=== PATIENT | male | born 1975 ===

== ENCOUNTER 2017-01-02 15:04 | Emergency (ER) | payer MEDICAID, OTHER ==
[2017-01-02 15:04] VITALS: BMI 25.8
[2017-01-02 15:13] VITALS: TEMP 97.7
[2017-01-02] MEDS ORDERED: Sodium Chloride 0.9% 500 ML IV STA (15:26)
--- NOTE | 2017-01-02 15:28 | ED PDOC ---
HPI: SOB/CHF/COPD Time Seen by Provider: 01/02/17 15:17 Chief Complaint (Nursing): Shortness Of Breath Chief Complaint (Provider): Shortness of Breath History Per: Patient History/Exam Limitations: no limitations Onset/Duration Of Symptoms: Days (x3), Worse Since (onset) Current Symptoms Are (Timing): Still Present Associated Symptoms: Chest Pain (mild, cough associated), Productive Cough ( yellow sputum), Other (rhinorrhea; no nausea, vomiting, abdominal pain, weakness ). denies: Fever, Chills Additional Complaint(s): Frandy Magdaleno is a 41 year old male, with a past medical history inclusive of CHF, HTN and previous heroin/cocaine abuse, who presents to the ED on 01/02/17 for the evaluation of moderate shortness of breath that he has experienced x3 days, reportedly worse since onset. Associated productive cough with yellow sputum also reported in addition to some mild cough-associated chest pain and rhinorrhea. Denies fever, chills, feelings of weakness, numbness/tingling, nausea, vomiting, diarrhea, abdominal pain or extremity pain/swelling. Patient states that he is currently staying within one of the local shelters and, though he has tried to elevate his legs as much as possible, has been noncompliant with is CHF medications x1 month (Coreg 3.75mg, Lasix 30mg) as they had been "thrown away" while he had been admitted to [facility] 1 month ago for a period of 5 days. PMD: none Past Medical History Reviewed: Historical Data, Nursing Documentation, Vital Signs Vital Signs: Last Vital Signs Temp 97.7 F 01/02/17 15:11 Pulse 129 H 01/02/17 15:11 Resp 22 01/02/17 16:11 BP 147/92 H 01/02/17 15:11 Pulse Ox 95 01/02/17 16:15 - Medical History PMH: CHF, Depression, HTN Denies: Asthma, Diabetes, Emphysema, Hepatitis, HIV, Chronic Kidney Disease, Seizures, Sexually Transmitted Disease - Family History Family History: States: Unknown Family Hx - Social History Current smoker - smoking cessation education provided: No Alcohol: None Drugs: Cocaine, Opiates (heroin) - Immunization History Hx Tetanus Toxoid Vaccination: Yes Hx Influenza Vaccination: Yes Hx Pneumococcal Vaccination: Yes - Home Medications Home Medications: Ambulatory Orders Medication Instructions Recorded Aspirin [Ecotrin] 81 mg PO DAILY 09/02/16 Carvedilol [Coreg] 3.125 mg PO DAILY 09/02/16 Furosemide [Lasix] 20 mg PO BID 09/02/16 RX: Carvedilol [Coreg] 3.125 mg PO DAILY #30 tab 12/10/16 RX: Citalopram [celEXA] 40 mg PO DAILY #30 tab 12/10/16 RX: Furosemide [Lasix] 20 mg PO BID #60 tab 12/10/16 RX: Gabapentin [Neurontin] 300 mg PO BID #60 cap 12/10/16 RX: traZODone [Desyrel] 50 mg PO HS PRN #30 tab 12/10/16 - Allergies Allergies/Adverse Reactions: Allergies Allergy/AdvReac Type Severity Reaction Status Date / Time shellfish derived Allergy Severe ANAPHYLAXIS Verified 01/02/17 15:10 Review of Systems ROS Statement: Except As Marked, All Systems Reviewed And Found Negative Constitutional: Negative for: Fever, Chills, Weakness ENT: Positive for: Nose Discharge Cardiovascular: Negative for: Edema Respiratory: Positive for: Cough (w/mild, cough-associated chest pain), Shortness of Breath, Sputum (yellow) Gastrointestinal: Negative for: Nausea, Vomiting, Abdominal Pain, Diarrhea Musculoskeletal: Negative for: Leg Pain Neurological: Negative for: Weakness, Numbness Physical Exam - Reviewed Nursing Documentation Reviewed: Yes Vital Signs Reviewed: Yes - Physical Exam Appears: Positive for: Non-toxic, No Acute Distress Head Exam: Positive for: ATRAUMATIC, NORMOCEPHALIC Skin: Positive for: Normal Color, Warm, Dry Eye Exam: Positive for: Normal appearance, PERRL ENT: Positive for: Nasal Congestion. Negative for: Pharyngeal Erythema, Tonsillar Exudate, Tonsillar Swelling Neck: Positive for: Normal, Painless ROM, Supple Cardiovascular/Chest: Positive for: Tachycardia (regular rhythm). Negative for : Edema (no notable LE edema), Murmur Respiratory: Positive for: Decreased Breath Sounds (diminished b/l) Gastrointestinal/Abdominal: Positive for: Normal Exam, Soft. Negative for: Tenderness Back: Positive for: Normal Inspection Extremity: Positive for: Normal ROM. Negative for: Swelling Neurologic/Psych: Positive for: Alert, Oriented - Laboratory Results Result Diagrams: 01/02/17 16:00 - ECG ECG Rhythm: Positive for: Sinus Tachycardia, Right Bundle Branch Block, Nonspecific Changes (nonspecific ST changes) O2 Sat by Pulse Oximetry: 95 (RA) Pulse Ox Interpretation: Normal - Radiology X-Ray: Read By Radiologist X-Ray Interpretation: No Acute Disease - Progress ED Course And Treament: 165: Dr. Ruffin to take over care and fu on labs. Medical Decision Making Medical Decision Makin:17 Initial Impression: cough, shortness of breath in setting of known CHF Initial Plan: * EKG * CXR * ABG Shock Panel * Labs * BNP * Magnesium * Phosphorus * Troponin I * PTT * PT * Urine Drug Screen * Blood Culture * Urine Culture * Vital Signs Q15min * IV NS 500ml at 100mls/hr * Solu-Medrol 125mg IVP * Toradol 15mg IVP * Tessalon Perles 100mg PO * Duonebs 3ml INH * Duonebs 3ml INH * Nebulizer Treatment * Reevaluation EKG shows sinus tachycardia with a RBBB and nonspecific ST changes, as compared to previous EKG from 08/28/16 which had shown LVH. Scribe Attestation: Documented by Susie Chung, acting as a scribe for Joe Price MD. Provider Scribe Attestation: All medical record entries made by the Scribe were at my direction and personally dictated by me. I have reviewed the chart and agree that the record accurately reflects my personal performance of the history, physical exam, medical decision making, and the department course for this patient. I have also personally directed, reviewed, and agree with the discharge instructions and disposition. Disposition - Clinical Impression Clinical Impression: Dyspnea - Patient ED Disposition Is Patient to be Admitted: Transfer of Care - Disposition Disposition: Transfer of Care Disposition Time: 16:53 Condition: STABLE Patient Signed Over To: Nikki Ruffin
[2017-01-02] MEDS ORDERED: Albuterol-Ipratrop 3 mg / 0.5 (3 ml) UD ONE (15:31)
[2017-01-02] MEDS ORDERED: Albuterol-Ipratrop 3 mg / 0.5 (3 ml) UD INH STA (15:31)
[2017-01-02] MEDS ORDERED: Albuterol-Ipratrop 3 mg / 0.5 (3 ml) UD IH STA (15:31)
--- NOTE | 2017-01-02 16:11 | RAD ---
HISTORY: Sepsis patient. Upright portable study 15:40. COMPARISON: 08/18/2016. FINDINGS: LUNGS: No active pulmonary disease. PLEURA: No significant pleural effusion identified, no pneumothorax apparent. CARDIOVASCULAR: Normal. OSSEOUS STRUCTURES: No significant abnormalities. VISUALIZED UPPER ABDOMEN: Normal. OTHER FINDINGS: None. IMPRESSION: No active disease. No significant interval change compared to the prior examination(s).
[2017-01-02 16:18] LABS: ABG ALLEN TEST YES; ARTERIAL BLOOD GAS PH 7.43 (7.35-7.45); ARTERIAL BLOOD GAS PO2 70 mm/Hg (80-100)
[2017-01-02 16:29] LABS: BASO % 0.5 % (0.0-2.0); EOS % 0.1 % (0.0-4.0); HEMATOCRIT 38.6 % (35.0-51.0); LYMPH # 1.3 K/uL (1.0-4.3); MEAN CELL VOLUME 93.6 fl (80.0-94.0); MEAN CORPUSCULAR HEMOGLOBIN 31.3 pg (27.0-31.0); MEAN CORPUSCULAR HGB CONC 33.4 g/dL (33.0-37.0); MEAN PLATELET VOLUME 8.2 fl (7.2-11.7); MONO % 20.4 % (0.0-10.0); NEUT # 6.6 K/uL (1.8-7.0); NRBC % 0.1 % (0.0-0.0); PLATELET COUNT 206 K/uL (130-400); RED CELL DISTRIBUTION WIDTH 14.9 % (11.5-14.5)
[2017-01-02 16:45] LABS: ALB/GLOB RATIO 1.2 (1.0-2.1); ALCOHOL SERUM < 10 mg/dl (0-10); ALKALINE PHOSPHATASE 73 U/L (38-126); ALT/SGPT 27 U/L (21-72); AST/SGOT 34 U/L (17-59); BILIRUBIN,TOTAL 0.4 mg/dl (0.2-1.3); BLOOD UREA NITROGEN 15 mg/dl (9-20); CALCIUM 9.1 mg/dL (8.4-10.2); CARBON DIOXIDE 23 mmol/L (22-30); CHLORIDE 96 mmol/L (98-107); GFR AFRICAN-AMERICAN > 60; GLUCOSE,RANDOM 105 mg/dL (75-110); MAGNESIUM 1.8 MG/DL (1.6-2.3); PHOSPHOROUS 3.5 mg/dl (2.5-4.5); POTASSIUM 4.3 MMOL/L (3.6-5.0); SODIUM 130 mmol/l (132-148); TOTAL PROTEIN 7.5 G/DL (6.3-8.2)
[2017-01-02 17:06] LABS: PARTIAL THROMBOPLASTIN TIME 28.2 SECONDS (23.3-32.5)
[2017-01-02 17:47] VITALS: BP 114/69; PULSE 107; RESP 18; O2SAT 96
[2017-01-02 18:10] LABS: RBC URINE 2 /hpf (0-3); URINE BACTERIA FEW (<OCC); URINE BILIRUBIN NEGATIVE (NEGATIVE); URINE BLOOD NEGATIVE (NEGATIVE); URINE COLOR YELLOW (YELLOW); URINE GLUCOSE (UA) NEG (Normal); URINE KETONE NEGATIVE (NEGATIVE); URINE LEUKOCYTE ESTERASE NEG Leu/uL (Negative); URINE PROTEIN 30 mg/dL (NEGATIVE); URINE UROBILINOGEN 0.2-1.0 mg/dL (0.2-1.0); WBC URINE 1 /hpf (0-5)
[2017-01-02] MEDS ORDERED: Iodixanol 320 MG/ML 100 ML BOTTLE IV ONE (18:19)
[2017-01-02] MEDS ORDERED: Sodium Chloride 0.9% 50 ML IV ONE (18:19)
--- NOTE | 2017-01-02 19:07 | CT ---
CT chest with IV contrast Indication: Shortness of breath Technique: Contiguous axial images were obtained through the chest with intravenous contrast enhancement. Sagittal and coronal reconstructions were generated and reviewed. This CT exam was performed using 1 or more of the falling dose reduction techniques: Automated exposure control, adjustment of the MAA and/or kV according to patient size, and/or use of iterative reconstruction technique. IV Contrast: 95 mL Visipaque 320 Radiation dose (DLP): 395.58 MGy-cm. Comparison: Chest x-ray performed earlier the same day. CT chest without IV contrast performed 06/16/16 Findings: Visualized portions of the inferior thyroid gland appear unremarkable. The mediastinal and hilar vascular structures appear within normal limits. The heart appears within normal limits of size. No large central or segmental pulmonary embolus evident. No focal consolidation. No pleural effusion. No pneumothorax. No suspicious pulmonary nodules measuring greater than 5 mm. Limited visualization of the upper abdomen appears grossly unremarkable. Mild degenerative changes. Bilateral gynecomastia. Impression: Large central or segmental pulmonary embolus evident.
[2017-01-02 19:12] LABS: EOSINOPHIL 1 % (0-7); NEUTROPHIL 62 % (42-75); REACTIVE LYMPHOCYTES 1 % (0-0); TOTAL CELLS COUNTED 100
--- NOTE | 2017-01-02 19:23 | ED PDOC ---
- Laboratory Results Result Diagrams: 01/02/17 16:00 01/02/17 16:00 - ECG O2 Sat by Pulse Oximetry: 96 - Progress ED Course And Treament: 530p Rec'd endorsement from Dr Price. Pt with shortness of breath and tachycardia. Pending CTA chest r/o PD Accession No. : [id number] Patient Name / ID : STEW SANDERS / [id number] Exam Date : 01/02/2017 18:30:26 ( Approved ) Study Comment : Sex / Age : M / 41Y Creator : Kerrie Santoyo MD Dictator : Kerrie Santoyo MD Job Trainer : Art Tracer : Kerrie Santoyo MD Approver2 : Report Date : 01/02/2017 19:06:06 My Comment : CT chest with IV contrast Indication: Shortness of breath Technique: Contiguous axial images were obtained through the chest with intravenous contrast enhancement. Sagittal and coronal reconstructions were generated and reviewed. This CT exam was performed using 1 or more of the falling dose reduction techniques: Automated exposure control, adjustment of the MAA and/or kV according to patient size, and/or use of iterative reconstruction technique. IV Contrast: 95 mL Visipaque 320 Radiation dose (DLP): 395.58 MGy-cm. Comparison: Chest x-ray performed earlier the same day. CT chest without IV contrast performed 06/16/16 Findings: Visualized portions of the inferior thyroid gland appear unremarkable. The mediastinal and hilar vascular structures appear within normal limits. The heart appears within normal limits of size. No large central or segmental pulmonary embolus evident. No focal consolidation. No pleural effusion. No pneumothorax. No suspicious pulmonary nodules measuring greater than 5 mm. Limited visualization of the upper abdomen appears grossly unremarkable. Mild degenerative changes. Bilateral gynecomastia. 730p On reeval pt comfortable, lungs clear, no longer tachycardic. Reports cough productive of yellow sputum for 2 weeks associated with this shortness of breath. Other lab unremarkable. Pt discharged with acute bronchitis. Also will refill htn meds. Disposition - Clinical Impression Clinical Impression: Bronchitis - POA Present On Arrival: None - Disposition Referrals: LTAC, [facility] within [facility] [Outside] - 01/03/17 Disposition: Routine/Home Disposition Time: 17:00 Condition: STABLE Prescriptions: Albuterol HFA [Ventolin HFA 90 mcg/actuation (8 g)] 2 puff IH Q4H PRN #1 inh PRN Reason: ASTHMA Azithromycin [Zithromax] 250 mg PO DAILY #6 dose Carvedilol [Coreg] 3.125 mg PO DAILY #14 tab Furosemide [Lasix] 20 mg PO BID #30 tab Instructions: Acute Bronchitis (ED), Hypertension (ED)
--- NOTE | 2017-01-03 08:22 | CARD ---
APPROVED REPORT EKG Measurement Heart [id number] [id number] <Conclusion> Sinus tachycardia Possible Left atrial enlargement Left axis deviation Right bundle branch block T wave abnormality, consider lateral ischemia Abnormal ECG
== END 2017-01-02 19:26 | disposition home or self-care (01) ==
LOC: H.ER 15:04
DX: R06.00 Dyspnea, unspecified (principal); I11.0 Hypertensive heart disease with heart failure; I50.9 Heart failure, unspecified; F17.210 Nicotine dependence, cigarettes, uncomplicated

== ENCOUNTER 2018-10-02 17:27 | Emergency (ER) | payer MEDICAID, OTHER ==
[2018-10-02 17:27] VITALS: BMI 25.8
[2018-10-02 17:35] VITALS: TEMP 98.8
[2018-10-02 18:20] LABS: BASO # 0.1 K/uL (0.0-0.2); BASO % 1.2 % (0.0-2.0); EOS # 0.4 K/uL (0.0-0.7); EOS % 5.9 % (0.0-4.0); HEMOGLOBIN 13.2 g/dL (12.0-18.0); INR 0.9; LYMPH # 1.6 K/uL (1.0-4.3); LYMPH % 23.7 % (20.0-40.0); MEAN CELL VOLUME 93.9 fl (80.0-94.0); MEAN CORPUSCULAR HEMOGLOBIN 31.3 pg (27.0-31.0); MEAN CORPUSCULAR HGB CONC 33.3 g/dL (33.0-37.0); MEAN PLATELET VOLUME 7.9 fl (7.2-11.7); MONO % 15.5 % (0.0-10.0); NEUT # 3.6 K/uL (1.8-7.0); NEUT % 53.7 % (50.0-75.0); PROTHROMBIN TIME 10.6 Seconds (9.8-13.1); RBC 4.21 Mil/uL (4.40-5.90); RED CELL DISTRIBUTION WIDTH 14.5 % (11.5-14.5); WHITE BLOOD COUNT 6.8 K/uL (4.8-10.8)
[2018-10-02 18:22] LABS: PARTIAL THROMBOPLASTIN TIME 36.3 Seconds (25.6-37.1)
[2018-10-02 18:24] LABS: ALB/GLOB RATIO 1.4 (1.0-2.1); ALBUMIN 4.2 g/dL (3.5-5.0); ALT/SGPT 39 U/L (21-72); AST/SGOT 35 U/L (17-59); BLOOD UREA NITROGEN 19 mg/dl (9-20); GFR NON-AFRICAN AMERICAN > 60
--- NOTE | 2018-10-02 18:26 | RAD ---
Date of service: 10/02/2018 HISTORY: SOB hx CHF AICD COMPARISON: Chest radiograph dated 01/02/2017. TECHNIQUE: Chest PA and lateral FINDINGS: LUNGS: No active pulmonary disease. PLEURA: No significant pleural effusion identified. No pneumothorax apparent. CARDIOVASCULAR: Left subclavian access AICD/pacemaker now present with single lead terminating in the right ventricle. No aortic atherosclerotic calcifications. Cardiomediastinal silhouette stably enlarged. OSSEOUS STRUCTURES: Unchanged. VISUALIZED UPPER ABDOMEN: Normal. OTHER FINDINGS: None. IMPRESSION: No active disease.
[2018-10-02 18:36] LABS: B-TYPE NATRIURETIC PEPTIDE 654 pg/ml (0-450)
--- NOTE | 2018-10-02 18:42 | ED PDOC ---
HPI: SOB/CHF/COPD Time Seen by Provider: 10/02/18 17:42 Chief Complaint (Nursing): Shortness Of Breath Chief Complaint (Provider): lower extremity swelling History Per: Patient History/Exam Limitations: no limitations Onset/Duration Of Symptoms: Days (4), Gradual Initiating Event: Out Of Medications Exacerbating Factor(s): Exertion Current Respiratory Medications: See Home Med List Severity: Moderate Associated Symptoms: Ankle/Leg Swelling. denies: Fever, Chest Pain, Bloody Cough, Productive Cough, Heart Racing, Dizziness Additional Complaint(s): 42yo male hx dilated cardiomyopathy s/p AICD this past fall, presents with bilateral lower extremity edema and mild exertional dyspnea ongoing for about 4 days since he ran out of medications. Denies chest pain, orthopnea, syncope, fever, redness of legs, trauma or change in urination. 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 Past Medical History Reviewed: Historical Data, Nursing Documentation, Vital Signs Vital Signs: Last Vital Signs Temp 98.8 F 10/02/18 17:32 Pulse 88 10/02/18 17:32 Resp 20 10/02/18 17:59 BP 139/83 10/02/18 17:32 Pulse Ox 100 10/02/18 17:32 - Medical History PMH: CHF, Depression, HTN, Pneumonia Denies: Asthma, Diabetes, Emphysema, Hepatitis, HIV, Chronic Kidney Disease, Seizures, Sexually Transmitted Disease - Surgical History Surgical History: Pacemaker (defibrillator) Other surgeries: knee - Family History Family History: States: Unknown Family Hx - Social History Current smoker - smoking cessation education provided: No - Immunization History Hx Tetanus Toxoid Vaccination: No Hx Influenza Vaccination: Yes Hx Pneumococcal Vaccination: Yes - Home Medications Home Medications: Ambulatory Orders Medication Instructions Recorded Aspirin [Ecotrin] 81 mg PO DAILY #30 tabec 08/27/18 Carvedilol [Coreg] 3.125 mg PO BID #60 tab 08/27/18 Enalapril Maleate [Vasotec] 2.5 mg PO DAILY #30 tab 08/27/18 Furosemide [Lasix] 20 mg PO DAILY #30 tab 08/27/18 traZODone [Desyrel] 50 mg PO HS #30 tab 08/27/18 Aspirin [Ecotrin] 81 mg PO DAILY #15 tabec 10/02/18 Carvedilol [Coreg] 12.5 mg PO BID #30 tab 10/02/18 Enalapril Maleate [Vasotec] 2.5 mg PO DAILY #15 tab 10/02/18 Furosemide [Lasix] 20 mg PO DAILY #30 tab 10/02/18 - Allergies Allergies/Adverse Reactions: Allergies Allergy/AdvReac Type Severity Reaction Status Date / Time shellfish derived Allergy Severe ANAPHYLAXIS Verified 08/23/18 14:02 Review of Systems Constitutional: Negative for: Fever ENT: Negative for: Throat Pain Cardiovascular: Positive for: Edema. Negative for: Chest Pain, Orthopnea, Light Headedness Respiratory: Positive for: Shortness of Breath Gastrointestinal: Negative for: Nausea, Abdominal Pain Genitourinary Male: Negative for: Dysuria Musculoskeletal: Positive for: Leg Pain. Negative for: Neck Pain, Back Pain Skin: Negative for: Rash, Lesions, Jaundice Neurological: Negative for: Weakness, Numbness Physical Exam - Reviewed Nursing Documentation Reviewed: Yes Vital Signs Reviewed: Yes - Physical Exam Appears: Positive for: Well, Non-toxic, No Acute Distress Head Exam: Positive for: ATRAUMATIC, NORMAL INSPECTION, NORMOCEPHALIC Skin: Positive for: Normal Color, Warm, DRY Eye Exam: Positive for: EOMI, Normal appearance, PERRL ENT: Positive for: Normal ENT Inspection Neck: Positive for: Normal, Painless ROM Cardiovascular/Chest: Positive for: Regular Rate, Rhythm Respiratory: Positive for: Normal Breath Sounds. Negative for: Decreased Breath Sounds, Respiratory Distress Gastrointestinal/Abdominal: Positive for: Soft. Negative for: Tenderness Back: Positive for: Normal Inspection Extremity: Positive for: Normal ROM, Swelling (b/l 2+ lower ext pitting edema). Negative for: Deformity Neurologic/Psych: Positive for: Alert, Oriented. Negative for: Motor/Sensory Deficits - Laboratory Results Result Diagrams: 10/02/18 17:55 10/02/18 17:55 Lab Results: PT 10.6 Seconds (9.8-13.1) 10/02/18 17:55 INR 0.9 10/02/18 17:55 APTT 36.3 Seconds (25.6-37.1) 10/02/18 17:55 Troponin I 0.0140 ng/mL (0.00-0.120) 10/02/18 17:55 NT-Pro-B Natriuret Pep 654 pg/ml (0-450) H 10/02/18 17:55 Total Bilirubin 0.2 mg/dl (0.2-1.3) 10/02/18 17:55 AST 35 U/L (17-59) 10/02/18 17:55 ALT 39 U/L (21-72) 10/02/18 17:55 Alkaline Phosphatase 78 U/L (38-126) 10/02/18 17:55 Total Protein 7.3 G/DL (6.3-8.2) 10/02/18 17:55 Albumin 4.2 g/dL (3.5-5.0) 10/02/18 17:55 Globulin 3.1 gm/dL (2.2-3.9) 10/02/18 17:55 Albumin/Globulin Ratio 1.4 (1.0-2.1) 10/02/18 17:55 - ECG ECG: Positive for: Interpreted By Me ECG Rhythm: Positive for: Sinus Rhythm, ST/T Changes Interpretation Of Abn EKG: no change from 08/26 Rate: 82 O2 Sat by Pulse Oximetry: 100 Pulse Ox Interpretation: Normal Medical Decision Making Medical Decision Making: labs reviewed only mild elev BNP 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 Stable for DC at this time. Followup cardiology. Disposition - Clinical Impression Clinical Impression: CHF exacerbation, Lower extremity edema - Patient ED Disposition Is Patient to be Admitted: No Counseled Patient/Family Regarding: Studies Performed, Diagnosis, Need For Followup, Rx Given - Disposition Referrals: Vadim Parra MD [Staff Provider] - Disposition: Routine/Home Disposition Time: 12:30 Condition: STABLE Additional Instructions: Take medications as directed. Return to ER for any worse or new symptoms. Prescriptions: Aspirin [Ecotrin] 81 mg PO DAILY #15 tabec Carvedilol [Coreg] 12.5 mg PO BID #30 tab Enalapril Maleate [Vasotec] 2.5 mg PO DAILY #15 tab Furosemide [Lasix] 20 mg PO DAILY #30 tab Instructions: Heart Failure, Adult (DC), Medicines for Heart Failure With Reduced Ejection Fraction Forms: [employer]. (Pashto)
[2018-10-02 23:05] VITALS: BP 128/84; PULSE 84; RESP 18; O2SAT 98
--- NOTE | 2018-10-03 07:21 | CARD ---
APPROVED REPORT Date of service: 10/02/2018 EKG Measurement Heart [id number] [place] 148P24 [id number] <Conclusion> Normal sinus rhythm T wave abnormality, consider lateral ischemia Prolonged QT Abnormal ECG
== END 2018-10-02 23:04 | disposition home or self-care (01) ==
LOC: H.ER 17:27
DX: J44.1 Chronic obstructive pulmonary disease with (acute) exacerbation (principal); R60.0 Localized edema; I11.0 Hypertensive heart disease with heart failure; Z79.82 Long term (current) use of aspirin; Z79.899 Other long term (current) drug therapy; Z95.0 Presence of cardiac pacemaker; F32.9 Major depressive disorder, single episode, unspecified
CPT/HCPCS: 71046; 80053; 83880; 84484; 85025; 85610; 85730; 93005; 96374; 99284; J1940